=== PATIENT | female | born 1990 | race Caucasian/White ===

== ENCOUNTER 2024-07-03 08:45 | Outpatient (CLI) | payer OTHER, SELFPAY ==
--- NOTE | ~2024-07-03 | MR_ITS ---
EXAMINATION: MR MRCP wo/w con/w 3D wo ind DATE: 07/03/2024 09:45 INDICATION: Exocrine pancreatic insufficiency TECHNIQUE: Magnetic resonance imaging (MRI) of the abdomen was performed without and with 10 mL Multi fifi intravenous contrast. Sequences included coronal T2-weighted SS-FSE, coronal T2-weighted FS SS- FSE, coronal T2-weighted FS FIESTA, axial T2-weighted FS FIESTA, axial T2-weighted FIESTA, sagittal T 2-weighted SS-FSE, axial T1-weighted dual-echo FSPGR, axial T2-weighted SS-FSE, axial T1-weighted LAV A, axial T2-weighted STIR FSE. Thick-slab T2-weighted FRFSE-XL images were obtained for magnetic reso nance cholangiopancreatography (MRCP). Rotating maximum intensity projection 3-D reconstructions of t he volumetric data were created by the technologist. Postcontrast sequences included a time course of axial T1-weighted LAVA. COMPARISON: None. FINDINGS: ABDOMEN MRI: Heart size is normal. No pericardial or pleural effusion. Cholecystectomy clips the gallbladder fossa . Liver, spleen, pancreas, bilateral adrenal glands and kidneys are normal. Visualized bowels are unr emarkable. No pathologically enlarged abdominal or upper pelvic lymphadenopathy. Minimal lumbar dext rocurvature. Normal bone marrow signal throughout. ABDOMEN MRCP: Common bile duct measures 6 mm in maximal diameter which is normal, tapering smoothly distally with n o evident stricture or filling defects. No intrahepatic biliary ductal dilation. Main pancreatic duct is also normal. IMPRESSION: 1. Status post cholecystectomy. Otherwise normal MRI/MRCP with no choledocholithiasis or biliary or p ancreatic ductal dilation. Reviewed, dictated and finalized at location B. IMPRESSION: 1. Status post cholecystectomy. Otherwise normal MRI/MRCP with no choledocholit hiasis or biliary or pancreatic ductal dilation.
== END 2024-07-03 08:46 | disposition home or self-care (01) ==
LOC: MICIMG 08:47
PROVIDERS: PCP Family Medicine; Visit Provider Family Medicine
DX: K86.81 Exocrine pancreatic insufficiency (principal); Z90.49 Acquired absence of other specified parts of digestive tract
CPT/HCPCS: 74183; 76376; A9577